=== PATIENT | female | born 1960 | race African-American/Black ===

== ENCOUNTER 2017-12-17 19:30 | Emergency (ER) | payer SELFPAY ==
[~2017-12-17] VITALS: Ht 157.5 cm; Wt 86.0 kg
[2017-12-17] MEDS ORDERED: KETOROLAC 15MG/ML VIAL IV ONE (22:15)
[2017-12-17] MEDS ORDERED: SODIUM CHLORIDE 0.9% 1,000 ML IV ONE (22:15)
[2017-12-17] MEDS ORDERED: MORPHINE SULFATE 4 MG/ML CPJ (NOT FOR IM USE) IV ONE (22:45)
[2017-12-17 22:55] LABS: BASOPHILS % 0.9 % (0.0-2.0); EOSINOPHILS % 3.6 % (0.0-5.0); HEMATOCRIT. 39.1 % (36.0-48.0); MEAN CORPUSCULAR HEMOGLOBIN 27.5 pg (28.0-32.0); MEAN CORPUSCULAR VOLUME 82.9 fL (81.0-99.0); MEAN PLATELET VOLUME 10.7 fl (7.4-10.4); MONOCYTES % 9.5 % (2.0-8.0); PLATELET 258 x1000/uL (130-400); RED BLOOD CELL COUNT 4.71 mill/uL (4.2-5.4); RED CELL DISTRIBUTION WIDTH 16.7 % (11.6-14.6)
[2017-12-17 23:06] LABS: CHLORIDE 107 mEq/L (98-107)
[2017-12-17 23:07] LABS: INR 0.9; PROTHROMBIN TIME 9.4 sec (9.1-11.1)
[2017-12-17] MEDS ORDERED: IOHEXOL-300 100 ML BOTTLE ONE (23:36)
[2017-12-18 01:04] LABS: CLARITY URINE CLOUDY (CLEAR); COLOR URINE YELLOW (YELLOW); KETONES URINE NEGATIVE (NEGATIVE); LEUKOCYTE ESTERASE URINE NEGATIVE (NEGATIVE); NITRITE URINE NEGATIVE (NEGATIVE); OCCULT BLOOD URINE NEGATIVE (NEGATIVE); PROTEIN URINE NEGATIVE (NEGATIVE); SPECIFIC GRAVITY URINE 1.016 (1.005-1.030); UROBILINOGEN URINE 0.2 E.U./dL (0.2-1.0)
[2017-12-18 02:27] VITALS: BP 153/84
== END 2017-12-18 02:28 | disposition home or self-care (01) ==
LOC: ER 19:30
DX: M54.5 Low back pain (principal); E87.6 Hypokalemia; E86.0 Dehydration; R10.84 Generalized abdominal pain; I10 Essential (primary) hypertension
CPT/HCPCS: 36415; 74177; 80053; 81003; 81025; 83690; 85025; 85610; 96361; 96374; 96375; 99285; J1885; J2270; J7030; Q9967